=== PATIENT | female | born 1975 | race African-American/Black ===

== ENCOUNTER 2018-06-14 21:36 | Emergency (ER) | payer OTHER | END 2018-06-15 00:02 | disposition other institution (70) | LOC: ED 21:36 | DX: Z02.89 Encounter for other administrative examinations (principal) ==

== ENCOUNTER 2018-06-14 21:36 | Emergency (ER) | payer OTHER ==
[~2018-06-14] VITALS: Ht 182.9 cm; Wt 139.3 kg
[2018-06-14 21:50] VITALS: Ht 182.9 cm; Wt 139.3 kg
[2018-06-15 00:02] VITALS: BP 165/99
== END 2018-06-15 00:02 | disposition home or self-care (01) ==
LOC: ED 21:36
DX: I10 Essential (primary) hypertension (principal); Z76.0 Encounter for issue of repeat prescription; I50.9 Heart failure, unspecified; E11.9 Type 2 diabetes mellitus without complications
CPT/HCPCS: 82962

== ENCOUNTER 2021-01-17 11:15 | Emergency (ER) | payer OTHER ==
[~2021-01-17] VITALS: Ht 182.9 cm; Wt 139.3 kg
[2021-01-17 11:17] VITALS: Ht 182.9 cm; Wt 139.3 kg
[2021-01-17 12:23] VITALS: BP 172/97
[2021-01-17] MEDS ORDERED: LASIX20 MG PO (13:34)
== END 2021-01-17 13:56 ==
LOC: ED 11:15
DX: I87.8 Other specified disorders of veins (principal); I16.0 Hypertensive urgency; M51.37 Other intervertebral disc degeneration, lumbosacral region; Z88.8 Allergy status to other drugs, medicaments and biological substances
CPT/HCPCS: 82962